=== PATIENT | female | born 1995 | race American Indian/Alaskan Native ===

== ENCOUNTER 2019-05-26 23:06 | Emergency (ER) | payer SELFPAY ==
[2019-05-26 23:25] VITALS: BP 119/77
[2019-05-26 23:57] LABS: Basophils # (Auto) 0.1 K/mm3 (0.0-0.1); Basophils % (Auto) 0.9 % (0.0-1.8); Eosinophils # (Auto) 0.1 K/mm3 (0.0-0.4); Eosinophils % (Auto) 1.1 % (0.0-4.3); Hematocrit 38.4 % (30.3-42.9); Hemoglobin 11.9 gm/dl (10.1-14.3); Lymphocytes # (Auto) 4.2 K/mm3 (1.2-5.4); Lymphocytes % (Auto) 44.6 % (13.4-35.0); Mean Corpuscular HGB Conc 31 % (30-34); Mean Corpuscular Volume 76 fl (79-97); Monocytes # (Auto) 0.8 K/mm3 (0.0-0.8); Monocytes % (Auto) 8.8 % (0.0-7.3); Platelet Count 289 K/mm3 (140-440); Red Blood Count 5.04 M/mm3 (3.65-5.03); Red Cell Distribution Width 12.9 % (13.2-15.2)
[2019-05-27 00:22] LABS: Alanine Aminotransferase 9 units/L (7-56); Albumin 4.8 g/dL (3.9-5); BUN/Creatinine Ratio 9; Blood Urea Nitrogen 6 mg/dL (7-17); Calcium 9.7 mg/dL (8.4-10.2); Hemolysis Index 9
[2019-05-27 02:17] LABS: Bacteria,Urine 1+ /HPF (Negative); Bilirubin,Urine NEG (Negative); Blood,Urine NEG (Negative); Color,Urine Yellow (Yellow); Mucus,Urine 3+ /HPF; Protein,Urine <15 mg/dL mg/dL (Negative); Urobilinogen,Urine < 2.0 mg/dL (<2.0); WBC,Urine < 1.0 /HPF (0.0-6.0)
--- NOTE | 2019-05-27 02:41 | Emergency Department Report ---
Vomiting/Diarrhea - HPI Duration: 1 month Severity: moderate Symptoms: Yes Watery Diarrhea, Yes Able to Tolerate Fluids, No Recent Unusual Foods, No Recent Untreated Water, No Recent use of Antibiotics, No Family w/ Similar Symptoms, No Contacts w/ Similar Symptoms, No Rash, No Hematuria, No Recent URI Symptoms Other History: 23-year-old -[place] female presents to the emergency room for nausea diarrhea and chills 1 month. Patient also reports abdominal pain in the left side nothingl makes it worse or makes it better. She denies any vomiting no blood in the stool. Patient reports that she had at least 4 stools a day it started off watery now has turned mucousy. Patient denies any antibiotic cutest denies any recent travels outside the country denies any unusual water. Patient reports that she was incarcerated and was discharged on 03/18/2019 patient reports she had good health while in retirement. Since last menstrual period was 05/18/2019 she is 1 para 1. <BARNEY FLETCHER - Last Filed: 05/27/19 02:28> <MARK FONTENOT - Last Filed: 05/27/19 07:06> - HPI Chief Complaint: Nausea/Vomiting/Diarrhea Stated Complaint: DIARRHEA/UNABLE TO EAT Time Seen by Provider: 05/27/19 02:28 ED Review of Systems ROS: Stated complaint: DIARRHEA/UNABLE TO EAT Other details as noted in HPI <BARNEY FLETCHER - Last Filed: 05/27/19 02:28> ROS: Stated complaint: DIARRHEA/UNABLE TO EAT Other details as noted in HPI <MARK FONTENOT - Last Filed: 05/27/19 07:06> ED Past Medical Hx - Past Medical History Previous Medical History?: No - Surgical History Past Surgical History?: Yes Additional Surgical History: X 1 - Social History Smoking Status: Current Every Day Smoker Substance Use Type: None <BARNEY FLETCHER - Last Filed: 05/27/19 02:28> <MARK FONTENOT - Last Filed: 05/27/19 07:06> - Medications Home Medications: Home Medications Medication Instructions Recorded Confirmed Last Taken Type Dicyclomine [Bentyl] 20 mg PO Q6H PRN #20 tablet 05/27/19 Unknown Rx Diphenoxylate/Atropine [Lomotil] 1 - 2 tab PO Q4H PRN #20 tablet 05/27/19 Unknown Rx Ondansetron [Zofran Odt] 4 mg PO Q6HR PRN #20 tab.rapdis 05/27/19 Unknown Rx Vomiting Diarrhea Exam - Exam General: Vital signs noted. No distress. Alert and acting appropriately. Neurologic: Alert and oriented, no deficits. Musculoskeletal: Unremarkable. <JUSTINELEON' M - Last Filed: 05/27/19 02:28> - Exam General: Vital signs noted. No distress. Alert and acting appropriately. Neurologic: Alert and oriented, no deficits. Musculoskeletal: Unremarkable. <MARK FONTENOT - Last Filed: 05/27/19 07:06> ED Course Vital Signs 05/26/19 05/26/19 23:12 23:21 Temperature 99.0 F 99 F Pulse Rate 92 H Respiratory 16 18 Rate Blood Pressure 119/77 119/77 O2 Sat by Pulse 100 Oximetry <JUSTINELEON' M - Last Filed: 05/27/19 02:28> Vital Signs 05/26/19 05/26/19 23:12 23:21 Temperature 99.0 F 99 F Pulse Rate 92 H Respiratory 16 18 Rate Blood Pressure 119/77 119/77 O2 Sat by Pulse 100 Oximetry <CORIEMARK - Last Filed: 05/27/19 07:06> ED Medical Decision Making - Lab Data Result diagrams: 05/26/19 23:38 05/26/19 23:38 Laboratory Tests 05/26/19 05/26/19 05/26/19 01:20 23:38 23:38 WBC 9.4 RBC 5.04 H Hgb 11.9 Hct 38.4 MCV 76 L MCH 24 L MCHC 31 RDW 12.9 L Plt Count 289 Lymph % (Auto) 44.6 H Clark % (Auto) 8.8 H Eos % (Auto) 1.1 Baso % (Auto) 0.9 Lymph # 4.2 Clark # 0.8 Eos # 0.1 Baso # 0.1 Seg Neutrophils % 44.6 Seg Neutrophils # 4.2 Sodium 141 Potassium 3.8 Chloride 100.7 Carbon Dioxide 24 Anion Gap 20 BUN 6 L Creatinine 0.7 Estimated GFR > 60 BUN/Creatinine Ratio 9 Glucose 89 Calcium 9.7 Total Bilirubin 0.30 AST 20 ALT 9 Alkaline Phosphatase 73 Total Protein 7.7 Albumin 4.8 Albumin/Globulin Ratio 1.7 HCG, Qual Urine Color Yellow Urine Turbidity Slightly-cloudy Urine pH 5.0 Ur Specific [place] 1.028 Urine Protein <15 mg/dl Urine Glucose (UA) Neg Urine Ketones Tr Urine Blood Neg Urine Nitrite Neg Urine Bilirubin Neg Urine Urobilinogen < 2.0 Ur Leukocyte Esterase Neg Urine WBC (Auto) < 1.0 Urine RBC (Auto) 1.0 U Epithel Cells (Auto) 1.0 Urine Bacteria (Auto) 1+ Urine Mucus 3+ 05/26/19 23:38 WBC RBC Hgb Hct MCV MCH MCHC RDW Plt Count Lymph % (Auto) Clark % (Auto) Eos % (Auto) Baso % (Auto) Lymph # Clark # Eos # Baso # Seg Neutrophils % Seg Neutrophils # Sodium Potassium Chloride Carbon Dioxide Anion Gap BUN Creatinine Estimated GFR BUN/Creatinine Ratio Glucose Calcium Total Bilirubin AST ALT Alkaline Phosphatase Total Protein Albumin Albumin/Globulin Ratio HCG, Qual Negative Urine Color Urine Turbidity Urine pH Ur Specific [place] Urine Protein Urine Glucose (UA) Urine Ketones Urine Blood Urine Nitrite Urine Bilirubin Urine Urobilinogen Ur Leukocyte Esterase Urine WBC (Auto) Urine RBC (Auto) U Epithel Cells (Auto) Urine Bacteria (Auto) Urine Mucus - Medical Decision Making 23-year-old -[place] female presents to the emergency room for nausea diarrhea and chills 1 month. Patient also reports abdominal pain in the left side nothing makes it worse or makes it better. She denies any vomiting no blood in the stool. Patient reports that she had at least 4 stools a day it started off watery now has turned mucousy. Patient denies any antibiotic cutest denies any recent travels outside the country denies any unusual water. Patient reports that she was incarcerated and was discharged on 03/18/2019 patient repo rts she had good health while in retirement. Since last menstrual period was 05/18/2019 she is 1 para 1. Labs have been ordered which are stable. CT of abdomen has been ordered. <BARNEY FLETCHER - Last Filed: 05/27/19 02:28> - Lab Data Result diagrams: 05/26/19 23:38 05/26/19 23:38 - Radiology Data Radiology results: report reviewed, image reviewed Findings [facility] [address] [place] [address] Cat Scan Report Signed Patient: NA BULLOCK MR#: [id number] : 1995 Acct:[id number] Age/Sex: 23 / F ADM Date: 05/26/19 Loc: ED Attending Dr: Ordering Physician: AMEYA AMOS Date of Service: 05/27/19 Procedure(s): CT abdomen pelvis w con Accession Number(s): [id number] cc: AMEYA AMOS CT ABDOMEN AND PELVIS WITH CONTRAST INDICATION: left lower quadrant pain and tenderness, nausea, vomiting, diarrhea CONTRAST: 100 cc Omnipaque 300 IV COMPARISON: None available. All CT scans at this location are performed using CT dose reduction for ALARA by means of automated exposure control. FINDINGS: Lung bases are clear. No pneumoperitoneum is seen. The extreme upper portion of the liver is not fully included. Liver shows fatty infiltration but is not as significantly enlarged. Spleen appears within normal limits. No urinary obstructive changes are seen. Gallbladder and bile ducts appear within normal limits. Pancreas shows no abnormalities. No abdominal masses are seen. No focal inflammatory changes are noted. Appendix appears within normal limits. Small bilateral ovarian cysts probably are physiologic. No free fluid is seen. IMPRESSION: No acute abnormalities are seen Signer Name: Benji Burris MD Signed: 05/27/2019 6:34 AM Workstation Name: [id number] Transcribed By: GJ Dictated By: Benij Burris MD Electronically Authenticated By: Benji Burris MD Signed Date/Time: 05/27/1934 DD/ 9 TD/TT: - Medical Decision Making I assumed care with the patient from my colleague Ms. Barney Fletcher PA-C at shift change at 0500 hours. Patient presented to the ED with nausea and vomiting and diffuse abdominal pain. Labs were drawn and abdominal pelvis CT scan with contrast was ordered. On reevaluation, patient feeling better, has been sleeping in the ED and has not had any nausea or vomiting and diarrhea while in the ED. Lab test results were reviewed and are nonactionable. Abdomen pelvis CT scan with contrast shows no acute abnormalities. Patient symptoms are likely due to a viral gastroenteritis. Patient was discharged home on antiemetics and antidiarrheal medications as well as pain medications and advised to follow-up with her primary care physician in 5-7 days for reevaluation. Patient was meanwhile advised to maintain a clear liquid diet for 12-24 hours. Patient was also advised to return to the ED immediately if symptoms get worse. - Differential Diagnosis gastronteritis; vomiting and diarrhea; colitis; diverticulitis, acute UTI <DEBORABrittaniMARK - Last Filed: 05/27/19 07:06> Critical care attestation.: If time is entered above; I have spent that time in minutes in the direct care of this critically ill patient, excluding procedure time. <BARNEY FLETCHER - Last Filed: 05/27/19 02:28> Critical care attestation.: If time is entered above; I have spent that time in minutes in the direct care of this critically ill patient, excluding procedure time. <STEVENIGGYMARK - Last Filed: 05/27/19 07:06> ED Disposition <BARNEY FLETCHER - Last Filed: 05/27/19 02:28> Is pt being admited?: No Does the pt Need Aspirin: No Time of Disposition: 07:03 <MARK FONTENOT - Last Filed: 05/27/19 07:06> Clinical Impression: Viral gastroenteritis, Nausea, vomiting and diarrhea Abdominal pain Qualifiers: Abdominal location: generalized Qualified Code(s): R10.84 - Generalized abdominal pain Disposition: TO HOME OR SELFCARE Condition: Stable Instructions: Abdominal Pain (ED), Acute Nausea and Vomiting (ED), Gastroenteritis (ED) Additional Instructions: Maintain a clear liquid diet for 12 to 24 hours, take medications as needed for nausea and vomiting and diarrhea as well as for pain. Follow up with your primary care physician in 5-7 days for reevaluation. Return to the ED immediately if symptoms get worse. Prescriptions: Dicyclomine [Bentyl] 20 mg PO Q6H PRN #20 tablet PRN Reason: Pain , Severe (7-10) Diphenoxylate/Atropine [Lomotil] 1 - 2 tab PO Q4H PRN #20 tablet PRN Reason: Diarrhea Ondansetron [Zofran Odt] 4 mg PO Q6HR PRN #20 tab.rapdis PRN Reason: Nausea Referrals: PRIMARY CARE, [Primary Care Provider] - 3-5 Days Forms: Work/School Release Form(ED) Print Language: CHINESE
--- NOTE | 2019-05-27 06:38 | Cat Scan Report ---
CT ABDOMEN AND PELVIS WITH CONTRAST INDICATION: left lower quadrant pain and tenderness, nausea, vomiting, diarrhea CONTRAST: 100 cc Omnipaque 300 IV COMPARISON: None available. All CT scans at this location are performed using CT dose reduction for ALARA by means of automated e xposure control. FINDINGS: Lung bases are clear. No pneumoperitoneum is seen. The extreme upper portion of the liver i s not fully included. Liver shows fatty infiltration but is not as significantly enlarged. Spleen brandy ears within normal limits. No urinary obstructive changes are seen. Gallbladder and bile ducts appear within normal limits. Pancreas shows no abnormalities. No abdominal masses are seen. No focal inflam matory changes are noted. Appendix appears within normal limits. Small bilateral ovarian cysts probab ly are physiologic. No free fluid is seen. IMPRESSION: No acute abnormalities are seen Signer Name: Benji Burris MD Signed: 05/27/2019 6:34 AM Workstation Name: [id number]
== END 2019-05-27 07:45 | disposition home or self-care (01) ==
LOC: ED 23:06
DX: A08.4 Viral intestinal infection, unspecified (principal); F17.200 Nicotine dependence, unspecified, uncomplicated; R10.9 Unspecified abdominal pain; Z79.899 Other long term (current) drug therapy
CPT/HCPCS: 36415; 74177; 80053; 81001; 84703; 85025; 99284; Q9967